=== PATIENT | male | born 1960 | race American Indian/Alaskan Native ===

== ENCOUNTER 2017-09-24 16:27 | Emergency (ER) | payer MEDICARE ==
[2017-09-24 16:47] VITALS: BP 155/82
[2017-09-24] MEDS ORDERED: CLEOCIN PO ONE (21:02)
[2017-09-24] MEDS ORDERED: TYLENOL #3 PO ONE (21:02)
--- NOTE | 2017-09-24 21:24 | Emergency Department Report ---
ED Lower Extremity HPI - General Chief Complaint: Extremity Injury, Lower Stated Complaint: PIN IN FOOT Time Seen by Provider: 09/24/17 20:58 Source: patient Mode of arrival: Ambulatory Limitations: No Limitations - History of Present Illness Initial Comments: Patient 57-year-old -[place] male history of borderline diabetes type 2 states stepped on nail stapled through a sneaker today puncturing foot pain in the foot is 3/10 there is no drainage no bleeding no swelling no erythema pt is ambulatory to baseline per patient MD Complaint: foot injury Onset/Timin -: days(s) Injury: Foot: Right Type of Injury: puncture wound Severity: moderate Severity scale (0 -10): 3 Improves With: nothing Worsens With: nothing Context: stepped on nail Associated Symptoms: ambulatory. denies: swelling, numbness, tingling - Related Data Home Medications Medication Instructions Recorded Confirmed Last Taken Allopurinol [Zyloprim] 100 mg PO QDAY 10/08/16 10/08/16 Unknown Aspirin [Adult Low Dose Aspirin EC] 81 mg PO DAILY 10/08/16 10/08/16 Unknown Carvedilol [Coreg] 25 mg PO BID 10/08/16 10/08/16 Unknown Hydrochlorothiazide [HCTZ] 25 mg PO QDAY 10/08/16 10/08/16 Unknown Sodium Bicarbonate 650 mg PO BID 10/08/16 10/08/16 Unknown Tamsulosin [Flomax] 0.4 mg PO DAILY 10/08/16 10/08/16 Unknown amLODIPine [Norvasc] 10 mg PO DAILY 10/08/16 10/08/16 Unknown glipiZIDE [Glucotrol] 4 mg PO QDAY 10/08/16 10/08/16 Unknown hydrALAZINE [Apresoline TAB] 25 mg PO TID 10/08/16 10/08/16 Unknown oxyCODONE /ACETAMINOPHEN [Percocet 1 tab PO Q6HR PRN 10/08/16 10/08/16 Unknown 5/325 mg] Previous Rx's Medication Instructions Recorded Last Taken Type Acetaminophen [Tylenol Extra 1,000 mg PO QID PRN #30 tablet 09/24/17 Unknown Rx Strength] Clindamycin [Clindamycin CAP] 300 mg PO Q8H #30 cap 09/24/17 Unknown Rx Allergies Allergy/AdvReac Type Severity Reaction Status Date / Time No Known Allergies Allergy Unverified 10/07/16 15:28 ED Review of Systems ROS: Stated complaint: PIN IN FOOT Other details as noted in HPI Constitutional: denies: chills, fever Eyes: denies: eye pain, eye discharge, vision change ENT: denies: ear pain, throat pain Respiratory: denies: cough, shortness of breath, wheezing Cardiovascular: denies: chest pain, palpitations Endocrine: no symptoms reported Gastrointestinal: denies: abdominal pain, nausea, diarrhea Genitourinary: denies: urgency, dysuria ED Past Medical Hx - Past Medical History Previous Medical History?: Yes Hx Hypertension: Yes Hx Congestive Heart Failure: No Hx Diabetes: Yes Hx Renal Disease: Yes (Hemodialysis --) Hx Asthma: No Hx COPD: No Hx HIV: No Additional medical history: 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 Diabetic neuropathy - Surgical History Past Surgical History?: Yes Additional Surgical History: left arm AV graft, Right middle toe amputation - Social History Smoking Status: Never Smoker Substance Use Type: Prescribed - Medications Home Medications: Home Medications Medication Instructions Recorded Confirmed Last Taken Type Allopurinol [Zyloprim] 100 mg PO QDAY 10/08/16 10/08/16 Unknown History Aspirin [Adult Low Dose Aspirin EC] 81 mg PO DAILY 10/08/16 10/08/16 Unknown History Carvedilol [Coreg] 25 mg PO BID 10/08/16 10/08/16 Unknown History Hydrochlorothiazide [HCTZ] 25 mg PO QDAY 10/08/16 10/08/16 Unknown History Sodium Bicarbonate 650 mg PO BID 10/08/16 10/08/16 Unknown History Tamsulosin [Flomax] 0.4 mg PO DAILY 10/08/16 10/08/16 Unknown History amLODIPine [Norvasc] 10 mg PO DAILY 10/08/16 10/08/16 Unknown History glipiZIDE [Glucotrol] 4 mg PO QDAY 10/08/16 10/08/16 Unknown History hydrALAZINE [Apresoline TAB] 25 mg PO TID 10/08/16 10/08/16 Unknown History oxyCODONE /ACETAMINOPHEN [Percocet 1 tab PO Q6HR PRN 10/08/16 10/08/16 Unknown History 5/325 mg] Acetaminophen [Tylenol Extra 1,000 mg PO QID PRN #30 tablet 09/24/17 Unknown Rx Strength] Clindamycin [Clindamycin CAP] 300 mg PO Q8H #30 cap 09/24/17 Unknown Rx ED Physical Exam - General Limitations: No Limitations General appearance: alert, in no apparent distress - Head Head exam: Present: atraumatic, normocephalic - Eye Eye exam: Present: normal appearance - ENT ENT exam: Present: mucous membranes moist - Neck Neck exam: Present: normal inspection - Respiratory Respiratory exam: Present: normal lung sounds bilaterally. Absent: respiratory distress - Cardiovascular Cardiovascular Exam: Present: regular rate, normal rhythm. Absent: systolic murmur, diastolic murmur, rubs, gallop - GI/Abdominal GI/Abdominal exam: Present: soft, normal bowel sounds - Rectal Rectal exam: Present: deferred - Extremities Exam Extremities exam: Present: normal inspection - Expanded Lower Extremity Exam Right Foot/Toe exam: Present: full ROM, tenderness, puncture wound. Absent: swelling , abrasion, laceration, ecchymosis, deformity, crepidus, dislocation, erythema, amputation, foreign body, calcaneal tenderness, tenderness at base of 5th metatarsal, nail avulsion, subungual hematoma Neuro vascular tendon exam: Absent: no vascular compromise, pulse deficit, abnormal cap refill, motor deficit, sensory deficit, tendon deficit, extremity cold to touch, pallor, abnormal 2-point discrimination, decreased fine/light touch, foot drop, peroneal nerve deficit Gait: Positive: observed and normal - Back Exam Back exam: Present: normal inspection - Neurological Exam Neurological exam: Present: alert, oriented X3, CN II-XII intact, normal gait, reflexes normal - Psychiatric Psychiatric exam: Present: normal affect, normal mood - Skin Skin exam: Present: warm, dry, intact, normal color. 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 v/s are stable given diabetes hx plan: tetanus, clindamycin, tylenol prn pain will dc to home in stable condition at this time, pt given strict instructions for wound care and follow up with pcp in 2-3 days with return to ed if symptoms worsen pt verbalized agreement and understanding of same. Critical care attestation.: If time is entered above; I have spent that time in minutes in the direct care of this critically ill patient, excluding procedure time. ED Disposition Clinical Impression: Puncture wound Disposition: DC-01 TO HOME OR SELFCARE Is pt being admited?: No Does the pt Need Aspirin: No Condition: Good Instructions: Puncture Wound (ED), Diabetic Foot Care (ED) Prescriptions: Acetaminophen [Tylenol Extra Strength] 1,000 mg PO QID PRN #30 tablet PRN Reason: Pain Clindamycin [Clindamycin CAP] 300 mg PO Q8H #30 cap Referrals: JJ GARCIA MD [Primary Care Provider] - 3-5 Days Forms: Work/School Release Form(ED) Time of Disposition: 21:32
[2017-09-24] MEDS ORDERED: BOOSTRIX IM ONE (21:28)
== END 2017-09-24 21:35 | disposition home or self-care (01) ==
LOC: ED 16:27
DX: S91.331A Puncture wound without foreign body, right foot, initial encounter (principal); X58.XXXA Exposure to other specified factors, initial encounter; Y93.89 Activity, other specified; Y92.89 Other specified places as the place of occurrence of the external cause; Y99.8 Other external cause status
CPT/HCPCS: 90471; 90715; 99282

== ENCOUNTER 2020-06-26 12:28 | Emergency (ER) | payer MEDICARE ==
--- NOTE | 2020-06-26 12:44 | Emergency Department Report ---
HPI - General Time Seen by Provider: 06/26/20 12:38 - HPI HPI: This is a 60-year-old male presents to the emergency department via EMS from dialysis with a complaint of a bleeding left upper extremity dialysis graft. The patient finished his dialysis session around 11 AM this morning and it has been bleeding since. It is controlled with a pressure dressing but continues to bleed when it is rechecked for reevaluation. On top of the ESRD on HD, the patient also has a history of hypertension and och-[id number] diabetes. He presents with elevated blood pressure but admits to not taking his blood pressure medication this morning. He denies any fever, chest pain, shortness of breath, dizziness/lightheadedness. 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 Diabetic neuropathy - Surgical History Additional Surgical History: left arm AV graft, Right middle toe amputation - Social History Smoking Status: Never Smoker Substance Use Type: Prescribed - Medications Home Medications: Home Medications Medication Instructions Recorded Confirmed Last Taken Type Aspirin [Adult Low Dose Aspirin EC] 81 mg PO DAILY 10/08/16 10/08/16 Unknown History Sodium Bicarbonate 650 mg PO BID 10/08/16 10/08/16 Unknown History Tamsulosin [Flomax] 0.4 mg PO DAILY 10/08/16 10/08/16 Unknown History allopurinoL [Zyloprim] 100 mg PO QDAY 10/08/16 10/08/16 Unknown History amLODIPine 10 mg PO DAILY 10/08/16 10/08/16 Unknown History carvediloL [Coreg] 25 mg PO BID 10/08/16 10/08/16 Unknown History glipiZIDE [Glucotrol] 4 mg PO QDAY 10/08/16 10/08/16 Unknown History hydrALAZINE [Apresoline TAB] 25 mg PO TID 10/08/16 10/08/16 Unknown History hydroCHLOROthiazide [HCTZ] 25 mg PO QDAY 10/08/16 10/08/16 Unknown History oxyCODONE /ACETAMINOPHEN [Percocet 1 tab PO Q6HR PRN 10/08/16 10/08/16 Unknown History 5/325 mg] Acetaminophen [Tylenol Extra 1,000 mg PO QID PRN #30 tablet 09/24/17 Unknown Rx Strength] Clindamycin [Clindamycin CAP] 300 mg PO Q8H #30 cap 09/24/17 Unknown Rx ED Review of Systems ROS: Stated complaint: BLEEDING FROM DIALYSIS PORT Other details as noted in HPI Comment: All other systems reviewed and negative Constitutional: denies: chills, fever Eyes: denies: eye pain, vision change ENT: denies: ear pain, throat pain Respiratory: denies: cough, shortness of breath Cardiovascular: denies: chest pain, palpitations Gastrointestinal: denies: abdominal pain, vomiting Genitourinary: denies: dysuria, discharge Musculoskeletal: denies: back pain, arthralgia Skin: denies: rash, lesions Neurological: denies: headache, weakness Physical Exam - Physical Exam Physical Exam: GENERAL: The patient is well-developed well-nourished. HENT: Normocephalic. Atraumatic. Patient has moist mucous membranes. EYES: Extraocular motions are intact. NECK: Supple. Trachea is midline. CHEST/LUNGS: Clear to auscultation. There is no respiratory distress noted. HEART/CARDIOVASCULAR: Regular. There is no tachycardia. There is no murmur. ABDOMEN: Abdomen is soft, nontender. Patient has normal bowel sounds. There is no abdominal distention. SKIN: Skin is warm and dry. There is some pulsatile bleeding from the left uppe r extremity dialysis fistula. NEURO: The patient is awake, alert, and oriented. The patient is cooperative. Normal speech. MUSCULOSKELETAL: There is no tenderness or deformity. There is no limitation range of motion. Radial pulse +2/4 and capillary refill less than 2 seconds to the affected left upper extremity. ED Course - Consultations Consultation #1: 06/26/20 15:41 I discussed the patient's presentation and ED course with his legal billing specialist, Dr. Otto. Dr. Otto agrees with the plan for discharge home and outpatient fo llow-up. ED Medical Decision Making - Lab Data Result diagrams: 06/26/20 13:10 - Medical Decision Making This patient presents to the emergency department with bleeding from the left upper extremity dialysis fistula that started after he completed his dialysis this morning around 11 AM. The bandages were removed from the left upper extremity when the patient arrived to the emergency department and he immediately had bleeding from the left upper extremity fistula where it was cannulated. The area was covered with a pressure dressing that includes rolled up sterile gauze and Coban. Patient was given a dose of hydralazine to bring his blood pressure down. He was given a dose of desmopressin. Labs were unremarkable including a hemoglobin of greater than 10, and an INR of about 1. The patient was reevaluated multiple times and the fistula was once again checked about 2 hours into his ED course. At this time the bleeding has stopped. The patient appears neurovascularly intact and vitals are reassuring including being afebrile. I spoke to the patient's legal billing specialist who agrees with the plan for outpatient follow-up. The patient has been instructed to remove the Coban dressing this evening and that he needs to go to the closest emergency department if he begins to have bleeding from his dialysis fistula again. Patient understands and agrees to the plan. Critical Care Time: No Critical care attestation.: If time is entered above; I have spent that time in minutes in the direct care of this critically ill patient, excluding procedure time. ED Disposition Clinical Impression: Bleeding from dialysis shunt Qualifiers: Encounter type: initial encounter Qualified Code(s): T82.838A - Hemorrhage due to vascular prosthetic devices, implants and grafts, initial encounter Disposition: - TO HOME OR SELFCARE Is pt being admited?: No Condition: Stable Instructions: Dialysis Vascular Access Malfunction Additional Instructions: Please follow-up with your primary care physician and legal billing specialist. Please continue with your normal dialysis regimen. Return to the closest emergency department with any return of bleeding from your dialysis fistula. Return to the emergency department with any worsening of your symptoms, new or concerning symptoms not addressed during this current emergency department visit, or with any acute distress. Referrals: TORSTEN BANKS MD [Primary Care Provider] - 2-3 Days PRASHANTH OTTO MD [Staff Physician] - 2-3 Days Time of Disposition: 15:11
[2020-06-26] MEDS ORDERED: hydrALAZINE 20 MG/1 ML INJ IV ONE (12:45)
[2020-06-26] MEDS ORDERED: DESMOPRESSIN 4 MCG/ML VIAL IV ONE (13:09)
[2020-06-26 13:28] LABS: Eosinophils # (Auto) 0.1 K/mm3 (0.0-0.4); Hematocrit 29.5 % (35.5-45.6); Hemoglobin 10.1 gm/dl (11.8-15.2); Lymphocytes # (Auto) 1.2 K/mm3 (1.2-5.4); Lymphocytes % (Auto) 26.2 % (13.4-35.0); Mean Corpuscular HGB Conc 34 % (32-34); Mean Corpuscular Volume 95 fl (84-94); Monocytes # (Auto) 0.5 K/mm3 (0.0-0.8); Monocytes % (Auto) 10.7 % (0.0-7.3); Platelet Count 243 K/mm3 (140-440); Red Cell Distribution Width 15.7 % (13.2-15.2)
[2020-06-26 13:40] LABS: INR 1.08 (0.87-1.13)
[2020-06-26 13:41] LABS: Partial Thromboplastin Time 31.5 Sec. (24.2-36.6)
[2020-06-26 13:50] VITALS: BP 149/68
[2020-06-26] MEDS ORDERED: DESMOPRESSIN ACETATE 32 MCG in SODIUM CHLORIDE 0.9% 50 ML IV ONE (14:00)
== END 2020-06-26 16:14 | disposition home or self-care (01) ==
LOC: ED 12:28
DX: T82.838A Hemorrhage due to vascular prosthetic devices, implants and grafts, initial encounter (principal); I10 Essential (primary) hypertension; E11.9 Type 2 diabetes mellitus without complications; Z79.899 Other long term (current) drug therapy; Z98.890 Other specified postprocedural states; Z79.82 Long term (current) use of aspirin; Y83.8 Other surgical procedures as the cause of abnormal reaction of the patient, or of later complication, without mention of misadventure at the time of the procedure; Y92.89 Other specified places as the place of occurrence of the external cause
CPT/HCPCS: 36415; 85025; 85610; 85730; 96374; 96375; 99284; J0360; J2597

== ENCOUNTER 2021-11-21 12:47 | Outpatient (CLI) | payer MEDICARE ==
--- NOTE | 2021-11-21 16:24 | XRay Report ---
LEFT HAND 3 VIEW(S) INDICATION / CLINICAL INFORMATION: BACK PAIN COMPARISON: None available. FINDINGS: BONES / JOINT(S): No acute fracture or subluxation. No significant arthritis. Well-corticated ossific density is noted along the radial aspect of the proximal interphalangeal joint of the fourth digit, likely sequela of prior trauma. SOFT TISSUES: No significant abnormality. ADDITIONAL FINDINGS: None. CERVICAL SPINE 5 VIEWS INDICATION / CLINICAL INFORMATION: BACK PAIN. COMPARISON: None available. FINDINGS: VERTEBRAE: No acute fracture. No significant malalignment. DISC SPACES / FACET JOINTS:There is degenerative disc disease noted at C6-C7 greater than C5-C6 great er than C4-C5. PARASPINAL SOFT TISSUES:Ossification of nuchal ligament. ADDITIONAL FINDINGS: Right carotid bulb calcification. LUMBAR SPINE 5 VIEWS INDICATION / CLINICAL INFORMATION: BACK PAIN. COMPARISON: None available. FINDINGS: VERTEBRAE: No acute fracture. No significant malalignment. DISC SPACES / FACET JOINTS:No significant abnormality. PARASPINAL SOFT TISSUES:Calcific atherosclerosis ADDITIONAL FINDINGS: Degenerative joint disease noted of the bilateral hip joints Signer Name: Amol Cabello DO Signed: 11/21/2021 4:19 PM Workstation Name: [id number]
== END 2021-11-21 12:48 | disposition home or self-care (01) ==
LOC: XRAY 12:47
PROVIDERS: ATTEND Urology
DX: M50.323 Other cervical disc degeneration at C6-C7 level (principal); M50.322 Other cervical disc degeneration at C5-C6 level; M50.321 Other cervical disc degeneration at C4-C5 level; M16.0 Bilateral primary osteoarthritis of hip; I70.0 Atherosclerosis of aorta; I65.21 Occlusion and stenosis of right carotid artery; M79.642 Pain in left hand
CPT/HCPCS: 72050; 72110

== ENCOUNTER 2021-12-17 17:22 | Emergency (ER) | payer MEDICARE ==
[2021-12-17 20:11] VITALS: BP 217/97
--- NOTE | 2021-12-18 02:07 | Emergency Department Report ---
- General Chief complaint: Skin/Abscess/Foreign Body Stated complaint: DIABETIC/KIDNEY Time Seen by Provider: 12/17/21 22:25 Source: patient Mode of arrival: Ambulatory Limitations: Other - History of Present Illness Initial comments: 61-year-old male history diabetes presents emerged from complaining of a small painful bump to the abdomen that came about last night and 6 further evaluation and treatment options emerged from today. No fever, chills, sweats. No trauma no drainage. Reports no known foreign travel no contact with anybody with similar symptoms this is the only lesion on the body at present time - Related Data Home Medications Medication Instructions Recorded Confirmed Last Taken Aspirin [Adult Low Dose Aspirin EC] 81 mg PO DAILY 10/08/16 10/08/16 Unknown Sodium Bicarbonate 650 mg PO BID 10/08/16 10/08/16 Unknown Tamsulosin [Flomax] 0.4 mg PO DAILY 10/08/16 10/08/16 Unknown allopurinoL [Zyloprim] 100 mg PO QDAY 10/08/16 10/08/16 Unknown amLODIPine 10 mg PO DAILY 10/08/16 10/08/16 Unknown carvediloL [Coreg] 25 mg PO BID 10/08/16 10/08/16 Unknown glipiZIDE [Glucotrol] 4 mg PO QDAY 10/08/16 10/08/16 Unknown hydrALAZINE [Apresoline TAB] 25 mg PO TID 10/08/16 10/08/16 Unknown hydroCHLOROthiazide [HCTZ] 25 mg PO QDAY 10/08/16 10/08/16 Unknown oxyCODONE /ACETAMINOPHEN [Percocet 1 tab PO Q6HR PRN 10/08/16 10/08/16 Unknown 5/325 mg] Previous Rx's Medication Instructions Recorded Last Taken Type Acetaminophen [Tylenol Extra 1,000 mg PO QID PRN #30 tablet 09/24/17 Unknown Rx Strength] Clindamycin [Clindamycin CAP] 300 mg PO Q8H #30 cap 09/24/17 Unknown Rx Mupirocin [Bactroban 2%] 1 applic TP TID #1 tube 12/18/21 Unknown Rx Sulfamethoxazole/Trimethoprim 1 each PO BID #14 12/18/21 Unknown Rx [Bactrim DS TAB] Allergies Allergy/AdvReac Type Severity Reaction Status Date / Time No Known Allergies Allergy Unverified 10/07/16 15:28 Abscess Boil HPI - HPI Chief Complaint: Skin/Abscess/Foreign Body Stated Complaint: DIABETIC/KIDNEY Time Seen by Provider: 12/17/21 22:25 Home Medications: Home Medications Medication Instructions Recorded Confirmed Last Taken Aspirin [Adult Low Dose Aspirin EC] 81 mg PO DAILY 10/08/16 10/08/16 Unknown Sodium Bicarbonate 650 mg PO BID 10/08/16 10/08/16 Unknown Tamsulosin [Flomax] 0.4 mg PO DAILY 10/08/16 10/08/16 Unknown allopurinoL [Zyloprim] 100 mg PO QDAY 10/08/16 10/08/16 Unknown amLODIPine 10 mg PO DAILY 10/08/16 10/08/16 Unknown carvediloL [Coreg] 25 mg PO BID 10/08/16 10/08/16 Unknown glipiZIDE [Glucotrol] 4 mg PO QDAY 10/08/16 10/08/16 Unknown hydrALAZINE [Apresoline TAB] 25 mg PO TID 10/08/16 10/08/16 Unknown hydroCHLOROthiazide [HCTZ] 25 mg PO QDAY 10/08/16 10/08/16 Unknown oxyCODONE /ACETAMINOPHEN [Percocet 1 tab PO Q6HR PRN 10/08/16 10/08/16 Unknown 5/325 mg] Previous Rx's Medication Instructions Recorded Last Taken Type Acetaminophen [Tylenol Extra 1,000 mg PO QID PRN #30 tablet 09/24/17 Unknown Rx Strength] Clindamycin [Clindamycin CAP] 300 mg PO Q8H #30 cap 09/24/17 Unknown Rx Mupirocin [Bactroban 2%] 1 applic TP TID #1 tube 12/18/21 Unknown Rx Sulfamethoxazole/Trimethoprim 1 each PO BID #14 12/18/21 Unknown Rx [Bactrim DS TAB] Allergies/Adverse Reactions: Allergies Allergy/AdvReac Type Severity Reaction Status Date / Time No Known Allergies Allergy Unverified 10/07/16 15:28 ED Review of Systems ROS: Stated complaint: DIABETIC/KIDNEY Other details as noted in HPI Comment: All other systems reviewed and negative ED Past Medical Hx - Past Medical History Hx Hypertension: Yes Hx Congestive Heart Failure: No Hx Diabetes: Yes Hx Renal Disease: Yes (Hemodialysis M-W-F) Hx Asthma: No Hx COPD: No Hx HIV: No Additional medical history: 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 Diabetic neuropathy - Surgical History Additional Surgical History: left arm AV graft, Right middle toe amputation - Social History Smoking Status: Never Smoker Substance Use Type: Prescribed - Medications Home Medications: Home Medications Medication Instructions Recorded Confirmed Last Taken Type Aspirin [Adult Low Dose Aspirin EC] 81 mg PO DAILY 10/08/16 10/08/16 Unknown History Sodium Bicarbonate 650 mg PO BID 10/08/16 10/08/16 Unknown History Tamsulosin [Flomax] 0.4 mg PO DAILY 10/08/16 10/08/16 Unknown History allopurinoL [Zyloprim] 100 mg PO QDAY 10/08/16 10/08/16 Unknown History amLODIPine 10 mg PO DAILY 10/08/16 10/08/16 Unknown History carvediloL [Coreg] 25 mg PO BID 10/08/16 10/08/16 Unknown History glipiZIDE [Glucotrol] 4 mg PO QDAY 10/08/16 10/08/16 Unknown History hydrALAZINE [Apresoline TAB] 25 mg PO TID 10/08/16 10/08/16 Unknown History hydroCHLOROthiazide [HCTZ] 25 mg PO QDAY 10/08/16 10/08/16 Unknown History oxyCODONE /ACETAMINOPHEN [Percocet 1 tab PO Q6HR PRN 10/08/16 10/08/16 Unknown History 5/325 mg] Acetaminophen [Tylenol Extra 1,000 mg PO QID PRN #30 tablet 09/24/17 Unknown Rx Strength] Clindamycin [Clindamycin CAP] 300 mg PO Q8H #30 cap 09/24/17 Unknown Rx Mupirocin [Bactroban 2%] 1 applic TP TID #1 tube 12/18/21 Unknown Rx Sulfamethoxazole/Trimethoprim 1 each PO BID #14 12/18/21 Unknown Rx [Bactrim DS TAB] ED Physical Exam - General Limitations: Other General appearance: alert, in no apparent distress - Head Head exam: Present: atraumatic, normocephalic - Eye Eye exam: Present: normal appearance, PERRL, EOMI - ENT ENT exam: Present: normal exam, mucous membranes moist - Neck Neck exam: Present: normal inspection - Respiratory Respiratory exam: Present: normal lung sounds bilaterally. Absent: respiratory distress - Cardiovascular Cardiovascular Exam: Present: regular rate, normal rhythm. Absent: systolic murmur, diastolic murmur, rubs, gallop - GI/Abdominal GI/Abdominal exam: Present: soft, normal bowel sounds - Rectal Rectal exam: Present: deferred - Extremities Exam Extremities exam: Present: normal inspection - Back Exam Back exam: Present: normal inspection - Neurological Exam Neurological exam: Present: alert, oriented X3 - Psychiatric Psychiatric exam: Present: normal affect, normal mood - Skin Skin exam: Present: warm, dry, intact, normal color, other (Events/pustules to the central abdomen with no local cellulitis or lymphangitis no local induration). Absent: rash ED Course Vital Signs 12/17/21 20:10 Temperature 97.8 F Pulse Rate 72 Respiratory 18 Rate Blood Pressure 217/97 O2 Sat by Pulse 96 Oximetry Critical care attestation.: If time is entered above; I have spent that time in minutes in the direct care of this critically ill patient, excluding procedure time. ED Disposition Disposition: HOME / SELF CARE / HOMELESS Condition: Stable Instructions: Rash, Adult, [id number] Additional Instructions: Seen evaluate emergency department for pustule to the abdomen currently wounds close divided with antibiotics as recommended that she get this wound evaluated and should undergo viral testing if more lesions become present. Prescriptions: Sulfamethoxazole/Trimethoprim [Bactrim DS TAB] 1 each PO BID #14 Mupirocin [Bactroban 2%] 1 applic TP TID #1 tube Referrals: AUSTEN KRAUS MD [Staff Physician] - 3-5 Days
== END 2021-12-18 03:32 | disposition home or self-care (01) ==
LOC: ED 17:22
DX: R19.00 Intra-abdominal and pelvic swelling, mass and lump, unspecified site (principal); I10 Essential (primary) hypertension; E11.9 Type 2 diabetes mellitus without complications
CPT/HCPCS: 99282